=== PATIENT | female | born 1980 | race Caucasian/White ===

== ENCOUNTER → 2021-03-23 | Day surgery (SDC) | payer OTHER ==
[~2021-03-23] VITALS: Ht 162.6 cm; Wt 97.5 kg
[~2021-03-23] MED LIST: LEXAPRO 10MG TA10 MG PO; NORCO 5-325 TA1 EACH PO; XYZAL5 MG PO
[2021-03-23 07:32] LABS: HCT 33.8 % (37.0-47.0); HGB 11.6 g/dl (12.5-16.0); MCH 30.1 pg (25.0-31.0); MCHC 34.3 g/dL (32.0-36.0); MCV 87.6 fL (78.0-100.0); MPV 10.6 fL (6.0-9.5); RBC 3.86 M/uL (4.20-5.40); RDW 13.1 % (11.5-14.0); WBC 10.3 K/uL (4.0-10.5)
[2021-03-23 08:01] LABS: ALBUMIN 3.3 g/dL (3.4-5.0); BILIRUBIN - TOTAL 0.5 mg/dL (0.2-1.0); BUN/CREAT RATIO (CALC) 16.4 RATIO; CREATININE 0.55 mg/dL (0.51-0.95); GLOBULIN (CALCULATION) 3.6 g/dL; POTASSIUM 3.9 mmol/L (3.5-5.1); TOTAL PROTEIN 6.9 g/dL (6.4-8.2)
== END | disposition home or self-care (01) ==
LOC: FAS 12-29 08:00
PROVIDERS: Surgery
DX: D17.21 Benign lipomatous neoplasm of skin and subcutaneous tissue of right arm (principal)
CPT/HCPCS: 36415; 80053; 84703; 93005; J1885; J2250; J2405; J2704; J3010; J7120